=== PATIENT | male | born 1945 | race Caucasian/White ===

== ENCOUNTER 2018-07-01 19:44 | Inpatient (IN) | payer OTHER ==
[~2018-07-01] VITALS: Ht 167.6 cm; Wt 62.6 kg
[2018-07-01] MEDS ORDERED: ALBUTEROL (0.083%) 2.5MG/3ML NEB HHN STA (20:10)
[2018-07-01 20:57] LABS: HEMATOCRIT. 38.6 % (42.0-52.0); HEMOGLOBIN. 12.7 g/dL (14.0-18.0); MEAN CORPUSCULAR HEMOGLOBIN 29.4 pg (28.0-32.0); MEAN CORPUSCULAR VOLUME 89.5 fL (80.0-94.0); MEAN PLATELET VOLUME 7.6 fl (7.4-10.4); PLATELET 236 x1000/uL (130-400); RED BLOOD CELL COUNT 4.31 mill/uL (4.7-6.1); RED CELL DISTRIBUTION WIDTH 14.9 % (11.6-14.6)
[2018-07-01 21:00] LABS: CHLORIDE 99 mEq/L (98-107)
[2018-07-01 21:34] LABS: PLATELET ESTIMATE NORMAL
[2018-07-02] VITALS (7 sets, daily range): BP systolic 83–97; BP diastolic 55–61
[2018-07-02] MEDS ORDERED: HYDROCODONE/ACETAMINOPHEN 5/325MG TABLET PO PRN (04:15)
[2018-07-02] MEDS ORDERED: ACETAMINOPHEN 325MG TABLET PO PRN (04:30)
[2018-07-02] MEDS ORDERED: SODIUM CHLORIDE 0.9% 500 ML IV ONE ×2 (04:30→05:30)
[2018-07-02] MEDS: PANTOPRAZOLE 40MG DR TABLET PO SCH (06:18)
[2018-07-02] MEDS ORDERED: TAMS-11 PO (06:45)
[2018-07-02] MEDS ORDERED: ALBU2.5V13 NEB (06:45)
[2018-07-02] MEDS ORDERED: UMEC1DIS IH (06:45)
[2018-07-02] MEDS ORDERED: ALBU18HF2 IH (06:45)
[2018-07-02] MEDS ORDERED: FINA5TAB11 PO (06:45)
[2018-07-02] MEDS ORDERED: MIDODRINE HCL 5MG TABLET PO SCH (08:10)
[2018-07-02] MEDS: IPRATROPIUM/ALBUTEROL 0.5-3(2.5)MG/3ML NEB HHN SCH ×4 (09:16→20:16)
[2018-07-02] MEDS: METHYLPREDNISOLONE SOD SUCC 40 MG/ML VIAL IV SCH ×2 (09:36→21:54)
[2018-07-02] MEDS: ENOXAPARIN 40MG/0.4ML SYR SUBCUT SCH (09:37)
[2018-07-02] MEDS ORDERED: MIDODRINE HCL 5MG TABLET PO NR (12:30)
[2018-07-02 12:55] LABS: HEMATOCRIT 35.7 % (42.0-52.0); MEAN CORPUSCULAR HEMOGLOBIN 29.7 pg (28.0-32.0); MEAN CORPUSCULAR VOLUME 88.7 fL (80.0-94.0); PLATELET 238 x1000/uL (130-400); RED BLOOD CELL COUNT 4.03 mill/uL (4.7-6.1); RED CELL DISTRIBUTION WIDTH 14.8 % (11.6-14.6)
[2018-07-02 13:31] LABS: CHLORIDE 102 mEq/L (98-107)
[2018-07-02] MEDS: LEVOFLOXACIN 500MG PREMIX 100 ML IV SCH (14:46)
[2018-07-02] MEDS: MIDODRINE HCL 5MG TABLET PO SCH ×2 (16:29→21:54)
[2018-07-03] VITALS: BP 94/58
[2018-07-03] MEDS: IPRATROPIUM/ALBUTEROL 0.5-3(2.5)MG/3ML NEB HHN SCH ×4 (00:25→13:03)
[2018-07-03 04:00] VITALS: BP 94/54
[2018-07-03] MEDS: PANTOPRAZOLE 40MG DR TABLET PO SCH (06:14)
[2018-07-03] MEDS: MIDODRINE HCL 5MG TABLET PO SCH ×2 (06:14→13:45)
[2018-07-03 08:00] VITALS: BP 100/59
[2018-07-03] MEDS: METHYLPREDNISOLONE SOD SUCC 40 MG/ML VIAL IV SCH (09:11)
[2018-07-03] MEDS: ENOXAPARIN 40MG/0.4ML SYR SUBCUT SCH (09:12)
[2018-07-03 12:54] VITALS: BP 115/79
[2018-07-03] MEDS: LEVOFLOXACIN 500MG PREMIX 100 ML IV SCH (13:42)
== END 2018-07-03 15:50 | disposition home or self-care (01) | DRG 189 ==
LOC: ER 21:16 → 5WST 22:17 → EDBEDREQTM 22:25 → EDBEDREQ 22:25 → ENRESERV 07-02 00:25
PROVIDERS: ADMIT Internal Medicine; ATTEND Internal Medicine
DX: J96.00 Acute respiratory failure, unspecified whether with hypoxia or hypercapnia (principal); J44.1 Chronic obstructive pulmonary disease with (acute) exacerbation; D68.59 Other primary thrombophilia; E44.1 Mild protein-calorie malnutrition; R06.03 Acute respiratory distress; N40.0 Benign prostatic hyperplasia without lower urinary tract symptoms; Z99.81 Dependence on supplemental oxygen; D64.9 Anemia, unspecified; Z85.118 Personal history of other malignant neoplasm of bronchus and lung; Z68.22 Body mass index [BMI] 22.0-22.9, adult
CPT/HCPCS: 36415; 71045; 80048; 85027; 94640; 99285; J1650; J1956; J2920; J7040; J7050; J7611; J7620